=== PATIENT | male | born 1990 | race Hispanic/Latino ===

== ENCOUNTER 2017-08-14 11:30 | Inpatient (IN) | payer MEDICAID ==
--- NOTE | 2017-08-14 12:12 | C.PDOC ---
History Of Present Illness 26 year old male with a past medical history of anxiety, depression, and hepatitis C who presents to the emergency department with a complaint of alcoholism and is requested a detox. Reports his last drink was prior to arrival. Denies nausea, vomiting, headache, fever, or chills. Time Seen by Provider: 08/14/17 11:47 Chief Complaint (Nursing): Substance Abuse History Per: Patient History/Exam Limitations: no limitations Onset/Duration Of Symptoms: Hrs Current Symptoms Are (Timing): Still Present Past Medical History Reviewed: Historical Data, Nursing Documentation, Vital Signs Vital Signs: Last Vital Signs Temp 98.1 F 08/14/17 11:38 Pulse 111 H 08/14/17 11:38 Resp 16 08/14/17 11:38 BP 157/94 H 08/14/17 11:38 Pulse Ox 99 08/14/17 13:15 - Medical History PMH: Anxiety, Depression, Hepatitis (C) Family History: States: No Known Family Hx - Social History Hx Alcohol Use: Yes Hx Substance Use: No - Immunization History Hx Tetanus Toxoid Vaccination: No Hx Influenza Vaccination: No Hx Pneumococcal Vaccination: No Review Of Systems Except As Marked, All Systems Reviewed And Found Negative. (As per HPI, otherwise negative) Constitutional: Positive for: Other (Detox). Negative for: Fever, Chills Gastrointestinal: Negative for: Nausea, Vomiting Neurological: Negative for: Headache Physical Exam - Physical Exam Appears: Non-toxic, Other (Flushed) Skin: Warm, Diaphoretic Head: Atraumatic, Normacephalic, No Tenderness Throat: Normal, No Erythema Chest: Symmetrical, No Deformity Cardiovascular: Rhythm Regular, No Murmur Respiratory: Normal Breath Sounds, No Decreased Breath Sounds, No Accessory Muscle Use, No Wheezing Gastrointestinal/Abdominal: Normal Exam, Soft, No Tenderness, No Other (No evidence of trauma) Back: Normal Inspection, No CVA Tenderness Extremity: Normal ROM, No Pedal Edema Neurological/Psych: Oriented x3, Normal Speech Gait: Steady ED Course And Treatment - Laboratory Results Result Diagrams: 08/14/17 12:13 08/14/17 12:13 O2 Sat by Pulse Oximetry: 99 (RA) Pulse Ox Interpretation: Normal Medical Decision Making Medical Decision Making: Time: 1148 Alcohol serum CMP Drug screen, Urine CBC w/ diff Crisis Evaluation Urinalysis Revelation Time: 1210 Seen by crisis for detox. Disposition Counseled Patient/Family Regarding: Studies Performed, Diagnosis - Disposition Disposition Time: 13:14 Condition: GUARDED Forms: [employer] [facility] (Kyrgyz) - Clinical Impression Clinical Impression: Alcohol abuse - Scribe Statement Scribe~Attestation: Documented by Fadumo Olivares, acting as a~scribe~for Roxane Aldrich MD. ~ Provider~Scribe~Attestation: All medical record entries made by the~Scribe~were at my direction and personally dictated by me. I have reviewed the chart and agree that the record accurately reflects my personal performance of the history, physical exam, medical decision making, and the department course for this patient. I have also personally directed, reviewed, and agree with the discharge instructions and disposition. ~ Decision To Admit - Pt Status Changed To: Hospital Disposition Of: Inpatient - Admit Certification Admit to Inpatient:: After my assessment, the patient will require hospitalization for at least two midnights. This is because of the severity of symptoms shown, intensity of services needed, and/or the medical risk in this patient being treated as an outpatient. - InPatient: Physician Admission Certification: I certify that this patient requires 2 or more midnights of care for the following reason:: needs inpatient detox - . Bed Request Type: Detox Patient Diagnosis: Alcohol abuse
[2017-08-14 12:17] LABS: BASO # 0.1 K/uL (0.0-0.2); BASO % 1.1 % (0.0-2.0); EOS % 0.2 % (0.0-4.0); HEMOGLOBIN 16.3 g/dL (12.0-18.0); LYMPH # 1.4 K/uL (1.0-4.3); LYMPH % 17.2 % (20.0-40.0); MEAN CELL VOLUME 92.3 fL (80.0-94.0); MEAN CORPUSCULAR HEMOGLOBIN 32.4 pg (27.0-31.0); MEAN CORPUSCULAR HGB CONC 35.1 g/dL (33.0-37.0); MEAN PLATELET VOLUME 7.8 fL (7.2-11.7); MONO # 0.8 K/uL (0.0-0.8); MONO % 10.6 % (0.0-10.0); NEUT # 5.7 K/uL (1.8-7.0); NEUT % 70.9 % (50.0-75.0); NRBC % 0.1 % (0.0-2.0); RBC 5.03 Mil/uL (4.40-5.90); RED CELL DISTRIBUTION WIDTH 13.3 % (11.5-14.5)
[2017-08-14 12:38] LABS: ALB/GLOB RATIO 1.4 (1.0-2.1); ALBUMIN 4.7 g/dL (3.5-5.0); ALT/SGPT 199 U/L (21-72); AST/SGOT 216 U/L (17-59); BLOOD UREA NITROGEN 14 mg/dL (9-20); CALCIUM 9.1 mg/dl (8.6-10.4); GFR AFRICAN-AMERICAN > 60; GFR NON-AFRICAN AMERICAN > 60
[2017-08-14 12:40] LABS: URINE BILIRUBIN NEGATIVE (NEGATIVE); URINE BLOOD NEGATIVE (NEGATIVE); URINE CLARITY Clear (Clear); URINE COLOR Amber (YELLOW); URINE GLUCOSE (UA) NORMAL (Normal); URINE HYALINE CAST 0-2 /lpf (0-2); URINE LEUKOCYTE ESTERASE NEG Leu/uL (Negative); URINE PROTEIN 1+ mg/dL (NEGATIVE)
[2017-08-14 12:58] LABS: BARBITURATES, UR NEGATIVE (NEGATIVE); OPIATES, UR NEGATIVE (NEGATIVE); PHENCYCLIDINE, UR NEGATIVE (NEGATIVE)
[2017-08-14 13:30] LABS: BENZODIAZEPINES, UR POSITIVE (NEGATIVE)
--- NOTE | 2017-08-14 14:58 | PCM.BM ---
<Jet Hollingsworth - Last Filed: 08/14/17 14:56> Treatment Plan Problems - Problems identified on initial assessmt potential for alochol withdrawal Status: Active Treatment assets and liabiliti Patient Assests: cooperative, ADL independent, good support system, cognitively intact Patient Liabilities: poor support system, substance abuse, medical problems - Milieu Protocol Maintain good personal hygiene: daily Encourage regular showers, daily Remind patient to perform daily oral care, daily Assist patient to perform ADL's Conduct patient checks and document Observation sheet: Q15 minutes Maintain personal safety: every shift Educate patient to report safety concerns to staff, every shift Monitor environment for contraband/sharps Medication safety: Monitor for expected outcome, potential side effects: every shift, Assess barriers to learning: every shift, Assess readiness for medication education: every shift <Aracelis Mccormack - Last Filed: 08/18/17 13:27> - Diagnosis (1) Alcohol use disorder, severe, dependence Status: Acute Interventions: 08/18/17 13:27 * Assess 7x/week regarding severity of withdrawal * Educate regarding risks, benefits, side effects and alternatives of medications * Use Motivational Interviewing for abstinence * Use CBT for relapse prevention * Medication management for withdrawal symptoms * Encourage medication assisted treatment *
[2017-08-14] MEDS: Multiple Vitamins Tab PO SCH (15:12)
[2017-08-14] MEDS ORDERED: Pneumococcal 23-Valent Vaccine IM ONE (15:33)
--- NOTE | 2017-08-15 07:02 | PCM.PSYCH ---
Initial Psychiatric Evaluation - Initial Psychiatric Evaluation Type of Admission: Voluntary Legal Status: Capacity Chief Complaint (in patient's own words): I .'came to get help History of Present Illness and Precipitating Events: Patient is a 26 years old CM, , father of one daughter age 2 (in patients grandparents custody), cocaine to the ED to get help alcohol detox. Patient denies any history of any inpatient psychiatric hospitalizations. He reports history of follow up with psychiatrist. Patient reports a history of drug treatment at [facility] as well as Rehab in [place] in February 2017. Patient had been using heroin for 4 years IV but was able to stop with the Vivitrol injection. Patient reports he hasn't used heroin since March 2017. Patient has multiple motivators to get clean: his daughter, his family and not returning to [facility] on a probation violation. Patient shares an apartment with his who is a recovering heroin addict in an [facility]. Patient reports of drinking heavily since past 4 years. He reports of drinking one pint of whiskey and 18 beers daily. Patient last drank was yesterday before coming to the hospital. He reports withdrawal symptoms including anxiety , headaches, sweating, mild tremors and nausea. He also reports of anxiety and irritability. He reports that sometimes his brain runs faster. He reports racing of thoughts, poor concentration and poor sleep. As per the patient he drinks to calm his brain down. He also reports that time depressed mood but denies any feelings of hopelessness or helplessness. He reports sometimes paranoia that people are following him. He also reports auditory hallucinations that someone is calling his names but denies any visual hallucinations. Past medical history None reported Current Medications: Active Medications Generic Name Dose Route Start Last Admin Trade Name Anishq PRN Reason Stop Dose Admin Clonidine HCl 0.1 mg 08/14/17 14:09 08/14/17 15:12 Catapres PO 0.1 mg Q4H PRN Administration Symptoms of alcohol withdrawl Folic Acid 1 mg 08/14/17 14:15 08/14/17 15:12 Folic Acid PO 1 mg DAILY EDU Administration Gabapentin 300 mg 08/14/17 18:00 08/14/17 17:09 Neurontin PO 300 mg BID EDU Administration Hydroxyzine HCl 50 mg 08/14/17 14:11 08/14/17 15:11 Atarax PO 50 mg Q6H PRN Administration Anxiety Lorazepam 2 mg 08/14/17 18:00 08/15/17 05:59 Ativan PO 08/19/17 17:59 2 mg Q6H EDU Administration Taper Lorazepam 1 mg 08/14/17 14:09 08/14/17 15:12 Ativan PO 1 mg Q4H PRN Administration SIGNS of alcohol withdrawl Mirtazapine 30 mg 08/14/17 22:00 08/14/17 20:59 Remeron PO 30 mg HS EDU Administration Multivitamins 1 tab 08/14/17 14:15 08/14/17 15:12 Hexavitamin PO 1 tab DAILY EDU Administration Nicotine 1 patch 08/14/17 16:00 08/14/17 15:55 Nicoderm Cq TD 1 patch DAILY EDU Administration Pneumococcal Polyvalent Vaccine 0.5 ml 08/17/17 10:00 Pneumovax 23 Vaccine IM 08/17/17 10:01 .ONCE ONE Thiamine HCl 100 mg 08/14/17 14:15 08/14/17 15:11 Vitamin B1 Tab PO 100 mg DAILY EDU Administration Trazodone HCl 50 mg 08/14/17 14:09 Desyrel PO HS PRN Insomnia Vitamin A 1 ea 08/15/17 10:00 Vitamin A & D Oint Ud Foilpak EXT 08/19/17 10:00 Q8 PRN Inflammation Past Psychiatric History - Past Psychiatric History Previous Treatment History: Inpatient Pertinent Medical Hx (Current Medical&Sleep Prob, Allergies): Allergies Allergy/AdvReac Type Severity Reaction Status Date / Time No Known Allergies Allergy Verified 08/14/17 11:40 Diazepam [Valium] 10 mg PO BID 08/14/17 Gabapentin 600 mg PO QID 08/14/17 Mirtazapine [Remeron] 30 mg PO QPM 08/14/17 chlordiazePOXIDE [Chlordiazepoxide HCl] 25 mg PO QID 08/14/17 Review of Systems - Review of Systems All systems: reviewed and no additional remarkable complaints except - Psychiatric Psychiatric: Anxiety, Irritability, Mood Swings. absent: Suicidal Ideation Mental Status Examination - Personal Presentation Personal Presentation: Looks stated age - Affect Affect: Broad - Motor Activity Motor Activity: Psychomotor Agitation - Reliability in Providing Information Reliability in Providing Information: Fair - Speech Speech: Organized - Mood Mood: Anxious - Formal Thought Process Formal Thought Process: Hallucinations, Paranoia, Flight of ideas - Hallucinations/Delusions Hallucinations: Auditory Delusions: Persecution - Obsessions/Compulsions Obsessions: No Compulsions: No - Cognitive Functions Orientation: Person, Place, Situation, Time Sensorium: Alert Attention/Concentration: Attentive Abstract Thinking: [place] Estimate of Intelligence: Below average Judgement: Imparied, as evidence by: Poor judgement, Imparied, as evidence by: Lack of insight into illness - Risk Risk: Withdrawal, Diminished functioning - Strength & Assets Inventory Strength & Assets Inventory: Family support DSM 5 DX - DSM 5 DSM 5 Diagnosis: Alcohol use disorder severe Alcohol withdrawal uncomplicated Opiate use disorder severe in sustained remission Bipolar disorder mixed severe with psychotic features - Recommended/Plan of Treatment Treatment Recommendations and Plan of Treatment: Alcohol use disorder severe -CBT -Psychoeducation -Supportive therapy, individual therapy -Use [place] for abstinence Alcohol withdrawal uncomplicated -CBT -Psychoeducation -Supportive therapy, individual therapy -Ativan when necessary -Start Ativan taper -Start folic acid/thiamine/multivitamin Opiate use disorder severe in sustained remission -Psychoeducation -Supportive therapy, individual therapy Bipolar disorder mixed severe with psychotic features -CBT -Psychoeducation -Supportive therapy, group therapy, individual therapy -Trazodone 100 mg by mouth daily at bedtime -Gabapentin 300 mg po QID -Remeron 30 mg by mouth daily at bedtime - Smoking Cessation Smoking Cessation Initiated: No
[2017-08-15] MEDS: Multiple Vitamins Tab PO SCH (09:16)
[2017-08-15] MEDS: Vitamins A & D Oint UD Foilpak EXT PRN (12:17)
[2017-08-16] MEDS: Multiple Vitamins Tab PO SCH (09:15)
--- NOTE | 2017-08-16 15:44 | PCM.PYCHPN ---
Psychiatric Progress Note - Psychiatric Progress Note Patient seen today, length of contact: 15 min Patient Chief Complaint: I am withdrawing.' Problems Identified/Issues Discussed: Patient seen and evaluated, chart reviewed and discussed with the nurse. Patient reports withdrawal symptoms including anxiety, shakes, sweating and headaches. He reports that his head is racing faster and reports poor concentration and poor sleep. He still reports paranoia and auditory hallucinations. He is reporting irritability and agitation but denies any suicidal ideation or homicidal ideation. He is tolerating the withdrawal medications and denies any side effects. Supportive therapy and psychoeducation were given. Medication Change: Yes (Ativan taper, start Trileptal) Medical Record Reviewed: Yes Mental Status Examination - Cognitive Function Orientation: Person, Place, Situation, Time Memory: Intact Attention: WNL Concentration: Poor Association: WNL Fund of Knowledge: Poor - Mood Mood: Anxious - Affect Affect: Broad - Speech Speech: Soft - Formal Thought Process Formal Thought Process: Hallucinations, Paranoia, Flight of ideas - Suicidal Ideation Suicidal Ideation: No - Homicidal Ideation Homicidal Ideation: No Goal/Treatment Plan - Goal/Treatment Plan Need for Continued Stay: Severe depression anxiety, Severe functional impairment Progress Toward Problem(s) and Goals/Treatment Plan: Alcohol use disorder severe -CBT -Psychoeducation -Supportive therapy, individual therapy -Use [place] for abstinence Alcohol withdrawal uncomplicated -CBT -Psychoeducation -Supportive therapy, individual therapy -Ativan when necessary -Start Ativan taper -Start folic acid/thiamine/multivitamin Opiate use disorder severe in sustained remission -Psychoeducation -Supportive therapy, individual therapy Bipolar disorder mixed severe with psychotic features -CBT -Psychoeducation -Supportive therapy, group therapy, individual therapy -Trazodone 100 mg by mouth daily at bedtime -Gabapentin 300 mg po QID -Remeron 30 mg by mouth daily at bedtime -Haldol 5 mg by mouth twice a day -Cogentin 1 mg by mouth twice a day -Trileptal 300 mg by mouth twice a day - Smoking Cessation Smoking Cessation Initiated: No
[2017-08-17] MEDS: Multiple Vitamins Tab PO SCH (09:05)
--- NOTE | 2017-08-17 09:09 | PCM.PYCHPN ---
Psychiatric Progress Note - Psychiatric Progress Note Patient seen today, length of contact: 15 min Patient Chief Complaint: I am withdrawing.' Problems Identified/Issues Discussed: Patient seen and evaluated, chart reviewed and discussed with the nurse. Patient reports withdrawal symptoms including anxiety, shakes, sweating and headaches. He reports that his head is racing faster and reports poor concentration and poor sleep. He still reports paranoia and auditory hallucinations. He is reporting irritability and agitation but denies any suicidal ideation or homicidal ideation. He is tolerating the withdrawal medications and denies any side effects. Supportive therapy and psychoeducation were given. Medication Change: Yes (Ativan taper, start Trileptal) Medical Record Reviewed: Yes Mental Status Examination - Cognitive Function Orientation: Person, Place, Situation, Time Memory: Intact Attention: WNL Concentration: Poor Association: WNL Fund of Knowledge: Poor - Mood Mood: Anxious - Affect Affect: Broad - Speech Speech: Soft - Formal Thought Process Formal Thought Process: Hallucinations, Paranoia, Flight of ideas - Suicidal Ideation Suicidal Ideation: No - Homicidal Ideation Homicidal Ideation: No Goal/Treatment Plan - Goal/Treatment Plan Need for Continued Stay: Severe depression anxiety, Severe functional impairment Progress Toward Problem(s) and Goals/Treatment Plan: Alcohol use disorder severe -CBT -Psychoeducation -Supportive therapy, individual therapy -Use [place] for abstinence Alcohol withdrawal uncomplicated -CBT -Psychoeducation -Supportive therapy, individual therapy -Ativan when necessary -Start Ativan taper -Start folic acid/thiamine/multivitamin Opiate use disorder severe in sustained remission -Psychoeducation -Supportive therapy, individual therapy Bipolar disorder mixed severe with psychotic features -CBT -Psychoeducation -Supportive therapy, group therapy, individual therapy -Trazodone 100 mg by mouth daily at bedtime -Gabapentin 300 mg po QID -Remeron 30 mg by mouth daily at bedtime -Haldol 5 mg by mouth twice a day -Cogentin 1 mg by mouth twice a day -Trileptal 300 mg by mouth twice a day
[2017-08-17] MEDS ORDERED: Pneumococcal 23-Valent Vaccine IM ONE (10:00)
[2017-08-17] MEDS: Vitamins A & D Oint UD Foilpak EXT PRN (10:09)
[2017-08-18 05:11] VITALS: O2SAT 99
--- NOTE | 2017-08-18 08:59 | PCM.PYCHDC ---
Mental Status Examination - Mental Status Examination Orientation: Person, Place, Situation, Time Memory: Intact Mood: Anxious Affect: Constricted Speech: Appropriate Attention: WNL Concentration: WNL Association: WNL Fund of Knowledge: WNL Formal Thought Process: No Impairment Suicidal Ideation: No Current Homicidal Ideation?: No Discharge Summary - Discharge Note Reason for Hospitalization: Alcohol detox Consultations:: List each consultation separately and include: 1. Reason for request. 2. Findings. 3. Follow-up Summary of Hospital Course include:: 1. Description of specific treatment plan utilized for patients during their course of treatmen. 2. Summarize the time- course for resolution of acute symptoms and/or regressed behaviors. 3. Describe issues identified and worked on during hospitalization. 4. Describe medication utilized. 5. Describe medical problems identified and treated. 6. Reassessment of suicide risk Summary of Hospital Course: The pt was admitted and started on treatment with psychotherapy, support, psychoeducation and medications. VT and CBT used. The pt attended groups and activities, as well as milieu therapy. All the risks and benefits of medications are discussed and the patient understood and agreed. The pt improved with the treatments provided. After care discussed with the patient. He will go to an [facility], [facility] in [facility] - Final Diagnosis (DSM 5) Condition upon Discharge: IMPROVED DSM 5: Alcohol use disorder severe Alcohol withdrawal uncomplicated Opiate use disorder severe in sustained remission Bipolar disorder mixed severe with psychotic features Disposition: HOME/ ROUTINE Follow-up Treatment Plan: Continue below medications after discharge. Follow after care plan as discussed. Use relapse prevention skills Return to ER or call 911 if suicidal, homicidal or symptoms relapse. Stay away from stress, alcohol and drugs. See primary doctor regularly and get labs. Prescriptions/Medication Reconciliation: Gabapentin [Neurontin] 400 mg PO TID #90 cap hydrOXYzine HCl [Atarax] 50 mg PO BID PRN #60 tab PRN Reason: Anxiety Mirtazapine [Remeron] 30 mg PO HS #30 tab OXcarbazepine [Trileptal] 300 mg PO BID #60 tab traZODone [Desyrel] 100 mg PO HS PRN #30 tab PRN Reason: Insomnia
[2017-08-18] MEDS: Multiple Vitamins Tab PO SCH (09:05)
[2017-08-18 09:25] VITALS: BP 115/74; PULSE 69; RESP 20; TEMP 97.5
== END 2017-08-18 10:06 | disposition home or self-care (01) | DRG 744 ==
LOC: C.ER 11:30 → C.7D 13:15
PROVIDERS: ADMIT Psychiatry & Neurology Psychiatry; ATTEND Psychiatry & Neurology Psychiatry
PROC: HZ2ZZZZ Detoxification Services for Substance Abuse Treatment (ICD-10-PCS; principal; 2017-08-14)
PROC: HZ59ZZZ Individual Psychotherapy for Substance Abuse Treatment, Supportive (ICD-10-PCS; 2017-08-14)
PROC: HZ46ZZZ Group Counseling for Substance Abuse Treatment, Psychoeducation (ICD-10-PCS; 2017-08-14)
PROC: GZ3ZZZZ Medication Management (ICD-10-PCS; 2017-08-14)
PROC: GZHZZZZ Group Psychotherapy (ICD-10-PCS; 2017-08-14)
PROC: GZ56ZZZ Individual Psychotherapy, Supportive (ICD-10-PCS; 2017-08-14)
DX: F10.230 Alcohol dependence with withdrawal, uncomplicated (principal); F31.64 Bipolar disorder, current episode mixed, severe, with psychotic features; F11.21 Opioid dependence, in remission; B18.2 Chronic viral hepatitis C; F41.9 Anxiety disorder, unspecified